=== PATIENT | male | born 1990 | race Caucasian/White ===

== ENCOUNTER → 2017-02-05 | Outpatient (CLI) | payer OTHER ==
--- NOTE | 2017-02-05 13:02 | RADRPT ---
PROCEDURE: RIGHT knee x-ray CLINICAL INDICATION: Pain TECHNIQUE: AP, lateral , sunrise and oblique views of the knee were obtained. COMPARISON: None FINDINGS: There is no evidence of acute fractures or dislocations. The bony mineralization is normal. No foc al bony blastic or lytic lesions. There is no evidence of patellar subluxation. No evidence of rig ht knee joint effusion. IMPRESSION: Negative right knee series. RPTAT:AAJJ Physician Kevin Date Time Electronically viewed and signed by Jacinto Kitchen Physician on 02/05/2017 13:01 /
== END | disposition home or self-care (01) ==
LOC: HKI 09:05
PROVIDERS: ATTEND Orthopaedic Surgery
DX: M25.561 Pain in right knee (principal)
CPT/HCPCS: 73564; Z7500; G0463